=== PATIENT | male | born 1990 | race Two or more races ===

== ENCOUNTER 2024-10-06 22:06 | Emergency (ER) | payer BC, SELFPAY ==
[2024-10-06 22:08] VITALS: BMI 9666.3
--- NOTE | 2024-10-06 22:18 | XR_ITS ---
Examination: Forearm, right, 2 views. Technique: Forearm, AP, lateral 2 views Date and time of exam: October 06, 2024 2212 hours INDICATIONS: Patient fell today with the cuneiforms, forearm pain FINDINGS: Acute comminuted fractures distal shafts radius and ulna, one shaft width offset and overriding Small bone fragments project adjacent to the distal ulnar fracture fragment IMPRESSION: Acute comminuted fractures distal radial and ulnar shafts as above
--- NOTE | 2024-10-06 22:19 | PD.EDRME ---
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 Right forearm deformity.
[2024-10-06 22:21] VITALS: BP 103/66; PULSE 98; RESP 20; TEMP 36.9; O2SAT 97
[2024-10-06] MEDS: MORPHINE SULF INJ 10 MG/ML VIAL 4 MG IVP (22:50)
[2024-10-06] MEDS: ONDANSETRON INJ 2 MG/ML INJ 2 ML 4 MG IVP (22:51)
--- NOTE | 2024-10-06 22:51 | XR_ITS ---
Examination: Hand, right 3 views Technique: Hand AP, oblique, lateral 3 views Date and time of exam: October 06, 2024 1055 hours INDICATIONS: Patient fell the day with injury to the hand, hand pain FINDINGS: Acute fracture ulnar styloid tip No foreign body No dislocation IMPRESSION: Acute displaced fracture ulnar styloid tip On the lateral view the distal ulna is dorsally positioned which may be a function of projection, clinical correlation advised
--- NOTE | 2024-10-06 22:51 | XR_ITS ---
Examination: Wrist, right 3 views Technique: Wrist AP, oblique, lateral 3 views Date and time of exam: October 06, 2024 1055 hours INDICATIONS: Patient fell today with injury to wrist, wrist pain. FINDINGS: Acute displaced ulnar styloid tip fracture Acute comminuted fractures distal shafts radius and ulna, one shaft width offset and overriding at both fracture sites with displaced small fracture fragment IMPRESSION: Acute comminuted displaced fractures distal shafts radius and ulna
--- NOTE | 2024-10-06 23:26 | EDNOTE_ITS ---
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 Right forearm deformity Dr. 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 Patient states he was running and jumping over a tennis court net when hit foot got caught in the net, causing to fall onto his right arm. Patient denies any head injuries or LOC. Denies any other injuries. Denies any tobacco, alcohol or illicit drug use. He last ate at 1900. Related Data Home Medications ?Medication ?Instructions ?Recorded ?Confirmed acyclovir 800 mg tablet 800 mg PO TID PRN Systemic S igns 10/02/23 12/24/23 And Symptoms Allergies Allergy/AdvReac Type Severity Reaction Status Date / Time Penicillins Allergy Unknown Verified 10/06/24 22:07 Review of Systems Review of Systems Systems Reviewed: All systems reviewed, normal except as documented Past Medical History Past Medical History NEUROLOGIC: Negative Neurological Disorders or Seizures CARDIAC: Negative Cardiac Disorders (states, was told had heart murmur, cardioloigist did not find any murmur) or Congestive Heart Failure RESPIRATORY: Positive Asthma (has not use inhaler since 11 yrs old); Negative Chronic Obstructive Pulmonary Disease (COPD) GASTROINTESTINAL: Negative Gastrointestinal Disorders GENITOURINARY: Negative Genitourinary Disorders or Renal Disease MUSCULOSKELETAL: Negative Musculoskeletal Disorders ENDOCRINE: Negative Endocrine Disorders, Diabetes Mellitus Type 1 or Diabetes Mellitus Type 2 HEMATOLOGIC: Negative Blood Disorders OTHER HISTORY: Positive Shingles and Chicken Pox; Negative Hospitalization, Autoimmune Disease, Blood Transfusions, Anesthesia Reactions or Cancer Family History FAMILY HISTORY: Negative Family Psychiatric Problems, Family Respiratory Disorders, Family Cardiac Disorders, Family Gastrointestinal Problems, Family Cancer, Family Surgery or Family Anesthesia Reaction Surgical History SURGICAL: Positive Arthroscopy (ACL Repair right knee) Social History SMOKING STATUS: Never smoker ED Exam Narrative Physical exam: GEN. APPEARANCE: The patient is alert awake oriented X-3 in no distress, lying down comfortably, does not look ill/toxic. Patient has good eye contact. Patient is cooperative. VITALS: All vitals were reviewed and the pulse ox is 97% on room air which is normal according to my interpretation. HEENT: Normocephalic, atraumatic. Pupils are equal and reactive. Oral mucosa is moist. Patent Nares NECK: Supple, nontender, no thyromegaly, no meningismus, no JVD CHEST: Symmetrical, atraumatic, and with equal expansion , Nontender on palpation no deformity and no crepitus. CARDIOVASCULAR: Heart regular rhythm no murmur or gallop rub or extra beats. LUNGS: Clear to auscultation bilaterally with symmetrical chest rise. No laboring tachypnea or wheezing. No intercostal subcostal retraction. No rales and no rhonchi. ABDOMEN: Soft, flat, nontender to palpation, no guarding or rebound tenderness. There are no abnormal masses palpated. Active and normal bowel sounds. EXTREMITIES: Patient has an obvious deformity to the right forearm. N/V is intact. Good pulses to the RUE. 2x 4mm puncture wounds to the right anterior forearm. Small abrasion to the left knee ambulating without any difficulty. SKIN: Warm and dry, no jaundice or rashes noted. NEURO: Patient is KAMARA x 4, Cranial nerves II through XII grossly intact. There is no focal neurologic deficits noted. GCS is 15, PNS and RESOURCING CONSULTANT appear grossly intact. PSYCHIATRIC: Patient is in normal mood and affect. Course Quality Measures none Orders Category Date Time Status Conscious Sedation [RT Stand By for Procedure] NOW Care 10/06/24 23:52 Active sling [Splint / Immobilizer] STAT Care 10/06/24 22:12 Active splint [Splint / Immobilizer] STAT Care 10/07/24 00:23 Active Transfer to another facility [Transfer/Discharge] Stat Discharge 10/07/24 02:13 Active XR forearm RT 2V Stat Exams 10/06/24 22:18 Completed XR forearm RT 2V Stat Exams 10/07/24 00:06 Taken XR hand comp RT min 3V Stat Exams 10/06/24 22:51 Completed XR wrist comp RT min 3V Stat Exams 10/06/24 22:51 Completed Clindamycin 900Mg Ivpb [Cleocin/D5w Ivpb] 900 mg Med 10/06/24 23:05 Discontinued Pre-Mixed [Pre-mixed Bag] 1 bag IV X1 HYDROmorphone INJ [Dilaudid Inj] Med 10/07/24 03:40 Discontinued 0.5 mg IVP X1 ONE HYDROmorphone INJ [Dilaudid Inj] Med 10/07/24 06:37 Discontinued 1 mg IVP X1 ONE Ketamine Inj Med 10/06/24 23:57 Discontinued 50 mg IVP X1 ONE Morphine Inj Med 10/06/24 22:19 Discontinued 4 mg IVP X1 ONE Ondansetron Inj [Zofran Inj] Med 10/06/24 22:19 Discontinued 4 mg IVP X1 ONE Propofol Inj [Diprivan Inj] Med 10/06/24 23:57 Discontinued 50 mg IV X1 ONE Propofol Inj [Diprivan Inj] Med 10/07/24 01:48 Discontinued 50 mg IV X1 ONE TET,DIP/PERT AC (Adult)-Tdap [Boostrix Adult (Tdap) Med 10/06/24 23:04 Discontinued Vacc] 0.5 ml IMI .ONCE ONE Vital Signs Vital signs: Vital Signs Temperature 98.4 F 10/06/24 22:21 Pulse Rate 98 10/06/24 22:21 Respiratory Rate 20 10/06/24 22:21 Blood Pressure 103/66 10/06/24 22:21 Pulse Oximetry (%) 97 10/06/24 22:21 Oxygen Delivery Method Room Air 10/06/24 22:21 PROCEDURES: Orthopedic Fracture Reduction Fracture #1: Time Out Performed: Yes Side: right Fracture Reduction Location: radius and ulna Analgesia: procedural sedation Technique: direct manipulation Post Reduction X-rays Demonstrate: acceptable reduction Post-reduction neuro exam: intact and no change Post-reduction vascular exam: intact and no change Splint Applied: Yes Patient Tolerated Procedure: well and no complications Procedural Sedation Indication: fracture/dislocation reduction Presedation Evaluation: Patient is alert, awake, and oriented x4. Patient is communicating and answering questions appropriately. Time of Last PO Intake: 19:00 Preparation: cardiac cath lab manager applied, pulse oximeter, capnometry used, supplemental O2 applied, suction/airway equipment at bedside and IV secured Ketamine: IV Ketamine dose (mg): 50 IV Propofol dose (mg): 100 Patient Tolerated Procedure: well and no complications Splint Fabrication: Clinician Made Type: Sugar Tong Reason for Splint: Optimal Positioning, Pain Management, Minimize Deformities and Support Joint/Muscle Site condition: Abrasion(s) Circulation Distal to Splint: Yes Movement Distal to Splint: Yes Senation Distal to Splint: Yes Tolerance: Tolerates Well Extremity Injury MDM Narrative MDM Narrative:: Scribe Attestation: 10/06/24 Kavita Reynolds am scribing for and in the presence of Dr. Pulido. Patient is a 34-year-old male is in emerged part with concerns for injury to his right upper extremity. Vital signs and exam as listed. Concern for fracture dislocation, soft tissue injury. Ordered x-rays and medications for symptom relief X-rays with acute comminuted fracture of the distal radius and ulna. Fracture is open, has 4 mm injury appreciated to the dorsal surface. 2327: Discussed case with Dr. Berman from orthopedic surgery regarding consultation. Discussed patients ED course, exam findings, labs, and radiology results. Recommends transferring the patient to a higher [id number] due to the patient being at risk for compartment syndrome given the fracture as well as it being an open fracture. Will be present for support for procedural sedation and fracture reduction. Risks versus benefits were discussed regarding procedural sedation and possible need for reduction. Patient consented to both procedures. Using ketamine and propofol, fracture reduction was performed by myself as well as Dr. Berman. Postreduction x-ray shows significant improvement in alignment. Patient is neurovascularly intact. Initiated transfer for higher level of care given the complicated fracture, and open injury. 0244: Discussed case with [facility] transfer center. Discussed patients ED course, exam findings, labs, and radiology results with Dr. Cantu, orthopedic surgeon. Recommends transferring the patient to a facility where there is hand surgery. 0327: Discussed case with [facility] transfer center. Discussed patients ED course, exam findings, labs, and radiology results. Awaiting callback. 0515: [facility] case [facility]. Discussed patients ED course, exam findings, labs, and radiology results. Awaiting callback. 0548: Discussed case with Dr. Rogers from orthopedic surgery at [facility] regarding transfer. Discussed patients ED course, exam findings, labs, and radiology results. Accepts the patient for transfer. Patient data External records reviewed:: [facility] previous records (Per chart review, patient has no relevant previous ED visits.) Clinical information provided by:: patient Social determinants that could affect healthcare access:: none Patient has the following chronic illnesses:: none How is presenting disease/condition affected by chronic disease/condition?: no chronic disease Evaluation data The following diagnostics were reviewed and interpreted by me:: radiology exam(s) Lab and/or radiology exams considered but not ordered:: none Interpretation Summary: Post reduction right forearm x-ray shows significant improvement in alignment of the radius and ulna, appreciate loose bony fragments, mild ulnar shortening, according to my interpretation. [facility] Report Signed Patient: ROX TRUJILLO II [facility]. Record#: [id number] Birthdate: 1990 Age/Sex: 34 / M Location: [facility] Attending Dr: Ordering Physician: Nisreen Pulido MD Date of Service: 10/06/24 Procedure(s): XR wrist comp RT min 3V Accession Number(s): [id number] cc: Gael Bains; Triston Craig MD; Nisreen Pulido MD~ Examination: Wrist, right 3 views Technique: Wrist AP, oblique, lateral 3 views Date and time of exam: October 06, 2024 1055 hours INDICATIONS: Patient fell today with injury to wrist, wrist pain. FINDINGS: Acute displaced ulnar styloid tip fracture Acute comminuted fractures distal shafts radius and ulna, one shaft width offset and overriding at both fracture sites with displaced small fracture fragment IMPRESSION: Acute comminuted displaced fractures distal shafts radius and ulna Dictated By: Triston Craig MD Signed By: <Electronically signed by Triston Craig MD in OV> 10/06/24 2318 [facility] Report Signed Patient: ROX TRUJILLO II [facility]. Record#: [id number] Birthdate: 1990 Age/Sex: 34 / M Location: [facility] Attending Dr: Ordering Physician: Nisreen Pulido MD Date of Service: 10/06/24 Procedure(s): XR hand comp RT min 3V Accession Number(s): [id number] cc: Triston Craig MD; Nisreen Pulido MD~ Examination: Hand, right 3 views Technique: Hand AP, oblique, lateral 3 views Date and time of exam: October 06, 2024 1055 hours INDICATIONS: Patient fell the day with injury to the hand, hand pain FINDINGS: Acute fracture ulnar styloid tip No foreign body No dislocation IMPRESSION: Acute displaced fracture ulnar styloid tip On the lateral view the distal ulna is dorsally positioned which may be a function of projection, clinical correlation advised Dictated By: Triston Craig MD Signed By: <Electronically signed by Triston Craig MD in OV> 10/06/24 7777 [facility] Report Signed Patient: ROX TRUJILLO [facility]. Record#: [id number] Birthdate: 1990 Age/Sex: 34 / M Location: [facility] Attending Dr: Ordering Physician: Brien Iqbal PA-C Date of Service: 10/06/24 Procedure(s): XR forearm RT 2V Accession Number(s): [id number] cc: Gael Bains; Triston Craig MD; Brien Iqbal PA-C~ Examination: Forearm, right, 2 views. Technique: Forearm, AP, lateral 2 views Date and time of exam: October 06, 2024 2212 hours INDICATIONS: Patient fell today with the cuneiforms, forearm pain FINDINGS: Acute comminuted fractures distal shafts radius and ulna, one shaft width offset and overriding Small bone fragments project adjacent to the distal ulnar fracture fragment IMPRESSION: Acute comminuted fractures distal radial and ulnar shafts as above Dictated By: Triston Craig MD Signed By: <Electronically signed by Triston Craig MD in OV> 10/06/24 2325 Medications / Prescriptions Medications or Prescriptions considered but not ordered:: none Medication administrations:: Medication Administration History Discontinued Medications Diphtheria/Tetanus/Acell Pertussis (Diphth,Pertuss(Acell),Tet Vac 0.5 Ml Syr- Adult) 0.5 ml IMi .ONCE ONE Stop: 10/06/24 23:05 Last Admin: 10/06/24 23:54 Dose: 0.5 ml Documented By: SIMEON Hydromorphone HCl (Hydromorphone Inj 2 Mg/Ml Vial) 0.5 mg IVP X1 ONE Stop: 10/07/24 03:41 Last Admin: 10/07/24 03:50 Dose: 0.5 mg Documented By: SIMEON Hydromorphone HCl (Hydromorphone Inj 2 Mg/Ml Vial) 1 mg IVP X1 ONE Stop: 10/07/24 06:38 Clindamycin Phosphate 900 mg/ (IV Miscellaneous Supplies) 50 mls @ 50 mls/hr IV X1 ONE Stop: 10/07/24 00:04 Last Infusion: 10/07/24 00:50 Dose: Infused Documented By: Admin: 10/06/24 23:52 Dose: 50 mls/hr Documented By: SIMEON Ketamine HCl (Ketamine 50 Mg/Ml Vial 10 Ml) 50 mg IVP X1 ONE Stop: 10/06/24 23:58 Last Admin: 10/07/24 00:45 Dose: 50 mg Documented By: SIMEON Comments: administered by Dr Pulido Morphine Sulfate (Morphine Sulf Inj 10 Mg/Ml Vial) 4 mg IVP X1 ONE Stop: 10/06/24 22:20 Last Admin: 10/06/24 22:50 Dose: 4 mg Documented By: SIMEON Ondansetron HCl (Ondansetron Inj 2 Mg/Ml Inj 2 Ml) 4 mg IVP X1 ONE; Protocol Stop: 10/06/24 22:20 Last Admin: 10/06/24 22:51 Dose: 4 mg Documented By: SIMEON Propofol (Propofol Inj 10 Mg/Ml Vial 20 Ml) 50 mg IV X1 ONE Stop: 10/06/24 23:58 Last Admin: 10/07/24 01:46 Dose: 50 mg Documented By: SIMEON Propofol (Propofol Inj 10 Mg/Ml Vial 20 Ml) 50 mg IV X1 ONE Stop: 10/07/24 01:49 Last Admin: 10/07/24 00:46 Dose: 50 mg Documented By: SIMEON Comments: given by Dr Jones 2 min see above Consultations Consultation(s) initiated? (list below): Yes Diagnosis Upper Extremity Injury Differential Diagnosis: other (fracture, dislocation, contusion) Most likely diagnosis given after review of the tests above:: see clinical impression below Admission Indicated Admission indicated?: not indicated Explain why admission is indicated or not indicated:: Patient requires a higher [id number]. Admission Request Was there a request for admission?: No Disposition Plan Disposition Plan: Transfer Critical Care Time Critical Care Time Critical Care Time: Yes Total Critical Care Time (min.): 45 Attestation: The high probability of sudden, clinically significant deterioration in the patient?s condition required the highest level of my preparedness to intervene urgently. The services I provided to this patient were to treat and/or prevent clinically significant deterioration. Services included the following: chart data review, reviewing nursing notes and/or old charts, documentation time, audit consultant collaboration regarding findings and treatment options, medication orders and management, direct patient care, vital sign assessments and ordering, interpreting and reviewing diagnostic studies and lab tests. Aggregate critical care time includes only time during which I was engaged in work directly related to the patient?s care, as described above, whether at bedside or elsewhere in the Emergency Department. It did not include time spent performing other reported procedures or the services of residents, students, nurses or physician assistants. Discharge Plan Plan Patient Disposition: [facility] Pt Being Transferred to: [facility] Service Needed for Transfer: Orthopedics Discharge Disposition comment: Accepted by Dr. Rogers Prescriptions/Referrals Prescriptions/Med Rec: No Action acyclovir 800 mg tablet 800 mg PO TID PRN (Reason: Systemic Signs And Symptoms) Patient Comments: TAKE 1 TABLET BY MOUTH THREE TIMES A DAY FOR 2 DAYS Referrals: Gael Dudley [Primary Care Provider] - In 1 week Problem List Clinical Impression: Comminuted fracture of shaft of radius, Comminuted fracture of shaft of ulna Patient/Caregiver Discharge Instructions Print Language: Polish Stand Alone Forms: Shari Award Info., Patient Portal Info Letter
[2024-10-06 23:30] VITALS: BP 131/85; PULSE 62; RESP 15; O2SAT 96
[2024-10-06] MEDS: CLINDAMYCIN 900MG IVPB 900 MG in PRE-MIXED 1 BAG 50 MG IV (23:52)
[2024-10-06] MEDS: DIPHTH,PERTUSS(ACELL),TET VAC 0.5 ML SYR- ADULT IMi (23:54)
[2024-10-07] VITALS (26 sets, daily range): BP systolic 116–160; BP diastolic 62–121; PULSE 53–78; RESP 10–29; TEMP 36.7–36.9; O2SAT 3–100
--- NOTE | 2024-10-07 00:06 | XR_ITS ---
Examination: Forearm, right, 2 views. Technique: Forearm, AP, lateral 2 views Date and time of exam: October 07, 2024, 0021 hours Comparison October 06, 2024 INDICATIONS: Postreduction forearm fractures. FINDINGS: Marked improvement alignment comminuted fractures distal shafts radius and ulna, displaced small bone fracture fragments noted again dorsal to the forearm IMPRESSION: Marked improvement alignment comminuted fractures distal shafts radius and ulna.
[2024-10-07] MEDS: KETAMINE 50 MG/ML VIAL 10 ML IVP (00:45)
[2024-10-07] MEDS: PROPOFOL INJ 10 MG/ML VIAL 20 ML 50 MG IV ×2 (00:46→01:46)
--- NOTE | 2024-10-07 01:25 | PC.NURSE ---
pot awake alert x 4. GCS 15. pt tolerated sedation and procedure without difficulty. CSM distal to injury WNL.
--- NOTE | 2024-10-07 01:36 | PD.ORTHCON ---
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 Noticed obvious deformity and came to ER did have some pain in his right knee but not very significant Past Medical History Past Medical History NEUROLOGIC: Negative Neurological Disorders or Seizures CARDIAC: Negative Cardiac Disorders (states, was told had heart murmur, cardioloigist did not find any murmur) or Congestive Heart Failure RESPIRATORY: Positive Asthma (has not use inhaler since 11 yrs old); Negative Chronic Obstructive Pulmonary Disease (COPD) GASTROINTESTINAL: Negative Gastrointestinal Disorders GENITOURINARY: Negative Genitourinary Disorders or Renal Disease MUSCULOSKELETAL: Negative Musculoskeletal Disorders ENDOCRINE: Negative Endocrine Disorders, Diabetes Mellitus Type 1 or Diabetes Mellitus Type 2 HEMATOLOGIC: Negative Blood Disorders OTHER HISTORY: Positive Shingles and Chicken Pox; Negative Hospitalization, Autoimmune Disease, Blood Transfusions, Anesthesia Reactions or Cancer Family History FAMILY HISTORY: Negative Family Psychiatric Problems, Family Respiratory Disorders, Family Cardiac Disorders, Family Gastrointestinal Problems, Family Cancer, Family Surgery or Family Anesthesia Reaction Surgical History SURGICAL: Positive Arthroscopy (ACL Repair right knee) Social History SMOKING STATUS: Never smoker Meds Home Medications and Allergies Home Medications ?Medication ?Instructions ?Recorded ?Confirmed ?Type acyclovir 800 mg tablet 800 mg PO TID PRN Systemic Signs 10/02/23 12/24/23 History And Symptoms Allergies Allergy/AdvReac Type Severity Reaction Status Date / Time Penicillins Allergy Unknown Verified 10/06/24 22:07 Exam Vital Signs Temp Pulse Resp BP Pulse Ox O2 Del Method O2 Flow Rate 98.1 F 74 18 134/89 H 100 Nasal Cannula 3 10/07/24 01:05 10/07/24 01:05 10/07/24 01:05 10/07/24 01:05 10/07/24 01:05 10/07/24 01:05 10/07/24 01:05 Temp 98.1 respiratory rate 18 Narrative Exam Patient has 3 mm puncture wound over right ulna almost no bleeding also appears to have a tiny puncture wound possibly over dorsal aspect of right radius obvious deformity is able to flex and extend his fingers a very minimal amount. Does complain of numbness able to tell which fingers I am touching. Abrasion anterior aspect of right knee without effusion Assessment & Plan Additional Assessment Additional comments: Type I open both bones right forearm fracture middle distal third shaft. Dr. Pulido called me. I came in and assisted her with a closed manipulation. This was done after ketamine and propofol. Good effect from sedation. After manipulation placed in sugar-tong's cast x-rays show near anatomic alignment out to length interosseous space well-maintained virtually no volar dorsiflexion. After manipulation was able to flex and extend fingers pain is 5. I told Dr. Pulido that I have not done a both bones for arm fracture and more than a decade. He is to be transferred higher level of care. There is some risk of compartment syndrome. Fortunately low velocity injury. I told the patient that I would be happy to do follow-up care in [place]. His injury is out of my skill set. Fortunately most anatomic reduction carried out. Plan Transfer to higher level of care. He received clindamycin. Does have a history of penicillin allergy he said he had it as a child and does not remember any of the particular's.
--- NOTE | 2024-10-07 01:39 | PC.NURSE ---
0100 Dr Muhammad placed splint to R arm. CSM distaly to fingers WNL. pt is awake and alert . moves all extrem. A&O x 4. GCS 15.
--- NOTE | 2024-10-07 03:08 | PC.NURSE ---
[facility] contacted for ortho, they have responded and stated they needed hand specialty- [facility]
--- NOTE | 2024-10-07 03:32 | PC.NURSE ---
[facility] contacted for possible transfer needing hand specialty- packed faxed and they stated they would review an reach back to providers
[2024-10-07] MEDS: HYDROmorphone INJ 2 MG/ML VIAL 0.5 MG IVP (03:50)
--- NOTE | 2024-10-07 05:24 | PC.NURSE ---
[facility] reached back regarding case and will present case to the Hand Specialist- per MD Pulido
[2024-10-07] MEDS: HYDROmorphone INJ 2 MG/ML VIAL 1 MG IVP ×3 (06:52→11:35)
--- NOTE | 2024-10-07 07:15 | PC.NURSE ---
REPORT RECEIVED FROM HEMANT WHITLEY AT THIS TIME; PER HEMANT WHITLEY, PT COMING IN WITH CHIEF COMPLAINT OF R ARM PAIN S/P FALL. PT WAS TRYING TO JUMP OVER A TENNIS NET WHEN HIS FOOT GOT CAUGHT IN THE NET AND HE LANDED ON HIS R ARM; PT HAS RIGHT FOREARM FRACTURE AND RIGHT WRIST FRACTURE. CONSCIOUS SEDATION WAS PERFORMED FOR CLOSED REDUCTION. PT R ARM NOW SPLINTED AND X-RAY SHOWED IMPROVEMENT. PT IS A TRANSFER FOR ORTHOPEDICS; HE IS GOING TO NEED SURGERY. PT DENIES ANY PMH. PT HAS 18G TO L AC. PT A&OX4, GCS 15. PT CONNECTED TO MONITORS; NO ACUTE DISTRESS NOTED AT THIS TIME.
[2024-10-07] MEDS: ONDANSETRON INJ 2 MG/ML INJ 2 ML 4 MG IVP (07:43)
--- NOTE | 2024-10-07 08:26 | EDNOTE_ITS ---
Emergency Room Addendum Addendum Narrative: Patient accepted to [facility] for transfer. Waiting on bed. C/o continued pain. Dilaudid 1mg ordered.
--- NOTE | 2024-10-07 10:04 | PC.CC ---
Addendum entered by Arturo Cisneros RN 10/07/24 10:50: 1040 PCS and face sheet sent to [facility] via Done In :60 Seconds. Tika contacted and patient information given. ETA 1250, ED made aware of ETA. Addendum entered by Arturo Cisneros RN 10/07/24 10:11: 1008 Contacted [facility] with confirmation with accepting information. Accepted by Hospitalist Dr. Manriquez, to room number 5127. Packet and CD in ED. Will set up transport. Original Note: 1000 Received call from ED [facility] with accepting information from [facility], nurse to nurse report to .
--- NOTE | 2024-10-07 11:12 | EKG_ITS ---
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
--- NOTE | 2024-10-07 11:27 | PC.NURSE ---
SPOKE TO DR. ROBLES; THIS RN SEEKING CLARIFICATION IF OK TO START AMIODARONE DRIP PROTOCOL. PT'S HR IN THE 70'S AT THIS TIME. PER DR. ROBLES, HOLD THE AMIODARONE DRIP FOR NOW.
--- NOTE | 2024-10-07 11:37 | PC.NURSE ---
SBAR REPORT GIVEN TO [facility] AT THIS TIME.
--- NOTE | 2024-10-07 11:42 | PC.NURSE ---
SPOKE TO PHILIPPE RN FROM [facility] FOR RN-RN SBAR REPORT AT THIS TIME AND INFORMED MIN RN THAT PT IS BEING TRANSPORTED BY [facility] NOW.
== END 2024-10-07 11:42 | disposition short-term general hospital (02) ==
PROVIDERS: Emergency Provider Emergency Medicine; PCP Physician Assistant
DX: S52.502A Unspecified fracture of the lower end of left radius, initial encounter for closed fracture (principal); S52.251A Displaced comminuted fracture of shaft of ulna, right arm, initial encounter for closed fracture; W19.XXXA Unspecified fall, initial encounter; Y93.02 Activity, running; I44.0 Atrioventricular block, first degree; R00.1 Bradycardia, unspecified; Z23 Encounter for immunization
CPT/HCPCS: 25565; 73090; 73110; 73130; 90471; 90715; 96365; 96375; 96376; 99291; J1171; J2270; J2405; J2704; S0077; J0736

== ENCOUNTER → 2025-01-16 | Outpatient (CLI) | payer BC, SELFPAY ==
--- NOTE | 2025-01-16 15:22 | XR_ITS ---
Examination: Forearm, right, 2 views. Technique: Forearm, AP, lateral 2 views Date and time of exam: January 16, 2025, 1545 hours, comparison October 07, 2024 INDICATIONS: Forearm fractures with surgery September 2024 FINDINGS: Significant healing fractures shafts radius and ulna with stable and satisfactory alignment IMPRESSION: Significant healing fractures shafts radius and ulna with satisfactory and stable alignment
== END | disposition home or self-care (01) ==
LOC: CDIM 15:19
PROVIDERS: Referring Provider Orthopaedic Surgery; Visit Provider Orthopaedic Surgery
DX: S52.301A Unspecified fracture of shaft of right radius, initial encounter for closed fracture (principal); X58.XXXA Exposure to other specified factors, initial encounter
CPT/HCPCS: 73090

== ENCOUNTER → 2025-01-19 | Outpatient (CLI) | payer BC, SELFPAY ==
[2025-01-19 17:58] LABS: Alanine Aminotransferase 35 U/L (10-49); Albumin, Serum 4.7 gm/dL (3.5-5.0); Albumin/Globulin Ratio 1.6 (1.2-2.2); Alkaline Phosphatase 72 U/L (46-116); Anion Gap 10 (7-16); Aspartate Amino Transferase 30 U/L (0-34); BUN/Creatinine Ratio 9 Ratio (12-20); Bilirubin,Total 0.7 mg/dL (0.3-1.2); Blood Urea Nitrogen 8 mg/dL (9-23); Calcium 9.8 mg/dL (8.3-10.6); Calcium (Corrected) 9.8 mg/dL (8.5-10.1); Carbon Dioxide 28.4 mMol/L (20.0-31.0); Cardiac Risk Estimate 5.9 RATIO (4.0-6.7); Chloride 102 mMol/L (98-107); Cholesterol 213 mg/dL (132-200); Creatinine (Component) 0.9 mg/dL (0.6-1.3); Globulin 3.0 gm/dL (2.3-3.5); Glucose 90 mg/dL (74-106); HDL Cholesterol 36 mg/dL (40-60); LDL Cholesterol,Calculated 129 mg/dL (0-130); Osmolality,Calculated 277 (275-295); Potassium 3.8 mMol/L (3.4-5.1); Sodium 140 mMol/L (136-145); Total Protein 7.7 gm/dL (5.7-8.2); Triglycerides 240 mg/dL (30-150); eGFR > 60 See Note
== END | disposition home or self-care (01) ==
LOC: COPL 16:17
PROVIDERS: PCP Physician Assistant; Referring Provider Physician Assistant; Visit Provider Physician Assistant
DX: E78.5 Hyperlipidemia, unspecified (principal)
CPT/HCPCS: 36415; 80053; 80061

== ENCOUNTER → 2025-04-06 | Outpatient (CLI) | payer BC, SELFPAY ==
--- NOTE | 2025-04-06 09:42 | XR_ITS ---
Study: Left knee. INDICATION: Left knee pain following fall in October 2024. Survey for patellar fracture. TECHNIQUE: AP, lateral and sunrise radiographs of the left knee at 1002 hours 06 April 2025. FINDINGS: Bone mineralization is normal. There is no fracture, dislocation, effusion, loose body or cartilage loss. The quadriceps and inferior patellar tendons insert normally. The patella is intact. IMPRESSION: No acute diagnostic abnormality. Intact patella.
== END | disposition home or self-care (01) ==
LOC: CDIM 09:23
PROVIDERS: PCP Family Medicine; Referring Provider Nurse Practitioner Family; Visit Provider Nurse Practitioner Family
DX: M22.92 Unspecified disorder of patella, left knee (principal); S89.92XS Unspecified injury of left lower leg, sequela; W19.XXXS Unspecified fall, sequela
CPT/HCPCS: 73562